=== PATIENT | male | born 1935 | race Caucasian/White ===

== ENCOUNTER 2017-03-09 08:42 | Emergency (ER) | payer MEDICARE ==
[~2017-03-09] VITALS: Ht 170.2 cm; Wt 85.0 kg
[~2017-03-09 08:42] MED LIST: LEVO50TA PO; METO-93 PO; SIMV5TAB5 PO
[2017-03-09 08:44] VITALS: BP 186/99
== END 2017-03-09 10:23 | disposition home or self-care (01) ==
LOC: ED 10:17
DX: S80.02XA Contusion of left knee, initial encounter (principal); M71.9 Bursopathy, unspecified; E11.9 Type 2 diabetes mellitus without complications; W18.00XA Striking against unspecified object with subsequent fall, initial encounter; Y93.89 Activity, other specified; Y99.8 Other external cause status; Y92.89 Other specified places as the place of occurrence of the external cause
CPT/HCPCS: 29505; 99284

== ENCOUNTER 2017-08-23 11:28 | Inpatient (IN) | payer MEDICARE ==
[~2017-08-23] VITALS: Ht 171.4 cm; Wt 81.6 kg
[2017-08-23] MEDS ORDERED: HYDR-3241 PO (11:42)
[2017-08-23] MEDS ORDERED: ASPI-650 PO (11:42)
[2017-08-23] MEDS ORDERED: LISI-170 PO (11:42)
[2017-08-23] MEDS ORDERED: INSU100C5 SQ-INSULIN (11:42)
[2017-08-23] MEDS ORDERED: TAMS-11 PO (11:42)
[2017-08-23] MEDS ORDERED: MECLIZINE CHEWABLE 25 MG TAB ONE (11:49)
[2017-08-23] MEDS ORDERED: SODIUM CHLORIDE FLUSH 10ML SYR IVF ONE (12:00)
[2017-08-23] MEDS ORDERED: MECLIZINE CHEWABLE 25 MG TAB PO ONE (12:00)
[2017-08-23 12:01] LABS: BASOPHILS # (AUTO) 0.02 x10^3/uL (0-0.1); BASOPHILS % (AUTO) 0 % (0-1); EOSINOPHILS # (AUTO) 0.04 x10^3/uL (0-0.4); EOSINOPHILS % (AUTO) 1 % (1-7); LYMPHOCYTES # (AUTO) 0.76 x10^3/uL (1-3.4); LYMPHOCYTES % (AUTO) 16 % (22-44); MD NO; MEAN CORPUSCULAR HEMOGLOBIN 30.6 pg (27.5-34.5); MEAN CORPUSCULAR HGB CONC 33.7 g/dL (33.2-36.2); MEAN CORPUSCULAR VOLUME 90.8 fL (81-97); MEAN PLATELET VOLUME 7.4 fL (7.4-10.4); MONOCYTES # (AUTO) 0.24 x10^3/uL (0.2-0.8); MONOCYTES % (AUTO) 5 % (2-9); NEUTROPHILS # (AUTO) 3.75 x10^3/uL (1.8-6.8); NEUTROPHILS % (AUTO) 78 % (42-75); PLATELET COUNT 239 x10^3/uL (130-400); RED CELL DISTRIBUTION WIDTH 13.7 % (9.4-14.8)
[2017-08-23 12:10] LABS: INTERNATIONAL NORMALIZED RATIO 1.08 (0.93-1.1); PROTHROMBIN TIME 11.1 Seconds (9.6-11.5)
[2017-08-23 12:12] LABS: ALANINE AMINOTRANSFERASE 56 U/L (12-78); ALBUMIN 3.8 g/dL (3.4-5.0); ANION GAP 7 mmol/L (5-15); CALCIUM 8.5 mg/dL (8.5-10.1); CHLORIDE 108 mmol/L (98-107)
[2017-08-23 12:17] LABS: ALKALINE PHOSPHATASE 65 U/L (45-117); BILIRUBIN,TOTAL 0.5 mg/dL (0.2-1.0); CREATININE 1.71 mg/dL (0.7-1.3); TOTAL PROTEIN 8.1 g/dL (6.4-8.2); TROPONIN I 0.041 ng/mL (0.000-0.045)
[2017-08-23] MEDS ORDERED: LABETALOL 5MG/ML, 20ML ONE (12:17)
[2017-08-23] MEDS ORDERED: LABETALOL 5MG/ML, 20ML IVPush ONE (12:30)
[2017-08-23 13:55] LABS: MICROSCOPIC AUTO
[2017-08-23 14:06] LABS: CULTURE INDICATED? NO
[2017-08-23] MEDS ORDERED: SODIUM CHLORIDE FLUSH 10ML SYR IVF PRN (16:00)
[2017-08-23] MEDS ORDERED: AMLODIPINE 5 MG TABLET PO ONE (16:30)
[2017-08-23] MEDS ORDERED: ONDANSETRON ODT 4 MG PO PRN (16:30)
[2017-08-23] MEDS ORDERED: METOCLOPRAMIDE 5 MG/ML, 2ML IVPush PRN (16:30)
[2017-08-23] MEDS ORDERED: hydrALAzine 20 MG/ML, 1ML IVPush PRN (16:30)
[2017-08-23] MEDS ORDERED: MECLIZINE CHEWABLE 25 MG TAB PO PRN (16:30)
[2017-08-23] MEDS ORDERED: ONDANSETRON 2MG/ML, 2ML IVPush PRN (16:30)
[2017-08-23] MEDS: INSULIN LISPRO 100 UNITS/ML, PEN SQ-INSULIN SCH ×2 (16:30→22:00)
[2017-08-23] MEDS ORDERED: PROMETHAZINE 25 MG/ML, 1ML IM PRN (16:30)
[2017-08-23 18:01] VITALS: BP 175/94
[2017-08-23 18:05] VITALS: BP 172/94
[2017-08-23 18:13] VITALS: BP 204/107
[2017-08-23] MEDS: ENOXAPARIN 40 MG/0.4 ML SQ SCH (18:46)
[2017-08-23] MEDS: SODIUM CHLORIDE 0.9% 1,000 ML IV SCH (18:54)
[2017-08-24 01:24] VITALS: BP 162/91
[2017-08-24] MEDS: SODIUM CHLORIDE 0.9% 1,000 ML IV SCH ×3 (01:58→20:09)
[2017-08-24 04:48] LABS: BASOPHILS # (AUTO) 0.02 x10^3/uL (0-0.1); BASOPHILS % (AUTO) 0 % (0-1); EOSINOPHILS # (AUTO) 0.27 x10^3/uL (0-0.4); EOSINOPHILS % (AUTO) 5 % (1-7); LYMPHOCYTES # (AUTO) 2.03 x10^3/uL (1-3.4); LYMPHOCYTES % (AUTO) 37 % (22-44); MD NO; MEAN CORPUSCULAR HEMOGLOBIN 31.2 pg (27.5-34.5); MEAN CORPUSCULAR HGB CONC 34.6 g/dL (33.2-36.2); MEAN CORPUSCULAR VOLUME 90.3 fL (81-97); MEAN PLATELET VOLUME 7.6 fL (7.4-10.4); MONOCYTES # (AUTO) 0.41 x10^3/uL (0.2-0.8); MONOCYTES % (AUTO) 7 % (2-9); NEUTROPHILS # (AUTO) 2.82 x10^3/uL (1.8-6.8); NEUTROPHILS % (AUTO) 51 % (42-75); PLATELET COUNT 239 x10^3/uL (130-400); RED BLOOD COUNT 4.46 x10^6/uL (4.38-5.82); RED CELL DISTRIBUTION WIDTH 13.6 % (9.4-14.8)
[2017-08-24 04:52] LABS: ANION GAP 9 mmol/L (5-15); CHLORIDE 107 mmol/L (98-107)
[2017-08-24 04:54] LABS: CREATININE 1.44 mg/dL (0.7-1.3)
[2017-08-24 06:25] VITALS: BP 176/91
[2017-08-24] MEDS ORDERED: hydrALAzine 20 MG/ML, 1ML IV PRN (07:30)
[2017-08-24] MEDS: INSULIN LISPRO 100 UNITS/ML, PEN SQ-INSULIN SCH ×4 (08:06→20:09)
[2017-08-24] MEDS: AMLODIPINE 5 MG TABLET PO SCH ×2 (09:00→09:33)
[2017-08-24] MEDS: MECLIZINE CHEWABLE 25 MG TAB PO SCH ×4 (09:32→20:19)
[2017-08-24] MEDS: TAMSULOSIN 0.4 MG CAP.ER.24H PO SCH (09:32)
[2017-08-24] MEDS: ASPIRIN 325 MG TABLET EC PO SCH (09:33)
[2017-08-24 12:24] VITALS: BP 137/74
[2017-08-24 14:15] VITALS: BP 135/76
[2017-08-24] MEDS: ENOXAPARIN 40 MG/0.4 ML SQ SCH (16:45)
[2017-08-24 19:29] VITALS: BP 130/71
[2017-08-25] MEDS: MECLIZINE CHEWABLE 25 MG TAB PO SCH ×6 (00:30→20:56)
[2017-08-25 01:16] VITALS: BP 129/70
[2017-08-25] MEDS: SODIUM CHLORIDE 0.9% 1,000 ML IV SCH (03:00)
[2017-08-25 05:17] LABS: BASOPHILS # (AUTO) 0.02 x10^3/uL (0-0.1); BASOPHILS % (AUTO) 0 % (0-1); EOSINOPHILS % (AUTO) 9 % (1-7); LYMPHOCYTES # (AUTO) 1.73 x10^3/uL (1-3.4); LYMPHOCYTES % (AUTO) 32 % (22-44); MD NO; MEAN PLATELET VOLUME 7.8 fL (7.4-10.4); MONOCYTES # (AUTO) 0.41 x10^3/uL (0.2-0.8); MONOCYTES % (AUTO) 8 % (2-9); NEUTROPHILS # (AUTO) 2.75 x10^3/uL (1.8-6.8); NEUTROPHILS % (AUTO) 51 % (42-75); PLATELET COUNT 218 x10^3/uL (130-400); RED BLOOD COUNT 4.38 x10^6/uL (4.38-5.82); RED CELL DISTRIBUTION WIDTH 13.7 % (9.4-14.8)
[2017-08-25 05:18] LABS: CHLORIDE 111 mmol/L (98-107)
[2017-08-25 05:25] LABS: ANION GAP 7 mmol/L (5-15); CALCIUM 7.9 mg/dL (8.5-10.1); CREATININE 1.43 mg/dL (0.7-1.3)
[2017-08-25 06:12] VITALS: BP 170/96
[2017-08-25] MEDS: INSULIN LISPRO 100 UNITS/ML, PEN SQ-INSULIN SCH ×4 (07:00→20:44)
[2017-08-25] MEDS: TAMSULOSIN 0.4 MG CAP.ER.24H PO SCH (08:37)
[2017-08-25] MEDS: AMLODIPINE 5 MG TABLET PO SCH (08:37)
[2017-08-25] MEDS: ASPIRIN 325 MG TABLET EC PO SCH (08:37)
[2017-08-25] MEDS: ACETAMINOPHEN 325 MG TABLET PO PRN ×2 (12:29→16:34)
[2017-08-25] MEDS: LISINOPRIL 20 MG TABLET PO SCH (12:29)
[2017-08-25 13:00] VITALS: BP 137/79
[2017-08-25] MEDS: ENOXAPARIN 40 MG/0.4 ML SQ SCH (16:34)
[2017-08-25 18:40] VITALS: BP 102/60
[2017-08-26] MEDS: ACETAMINOPHEN 325 MG TABLET PO PRN ×3 (00:40→20:17)
[2017-08-26] MEDS: MECLIZINE CHEWABLE 25 MG TAB PO SCH ×2 (00:41→05:02)
[2017-08-26 01:26] VITALS: BP 132/92
[2017-08-26] MEDS: INSULIN LISPRO 100 UNITS/ML, PEN SQ-INSULIN SCH ×4 (07:27→20:15)
[2017-08-26 08:00] VITALS: BP 138/79
[2017-08-26] MEDS ORDERED: MECLIZINE CHEWABLE 25 MG TAB PO PRN (08:30)
[2017-08-26] MEDS: ASPIRIN 325 MG TABLET EC PO SCH (11:20)
[2017-08-26] MEDS: TAMSULOSIN 0.4 MG CAP.ER.24H PO SCH (11:21)
[2017-08-26] MEDS: LISINOPRIL 20 MG TABLET PO SCH (11:21)
[2017-08-26 12:52] VITALS: BP 134/80
[2017-08-26] MEDS: ENOXAPARIN 40 MG/0.4 ML SQ SCH (16:10)
[2017-08-26 19:02] VITALS: BP 166/82
[2017-08-27 01:37] VITALS: BP 127/77
[2017-08-27] MEDS: INSULIN LISPRO 100 UNITS/ML, PEN SQ-INSULIN SCH ×4 (07:00→21:00)
[2017-08-27 07:19] LABS: ALBUMIN 3.1 g/dL (3.4-5.0); ANION GAP 9 mmol/L (5-15); CALCIUM 8.7 mg/dL (8.5-10.1); CHLORIDE 110 mmol/L (98-107); CREATININE 1.49 mg/dL (0.7-1.3)
[2017-08-27 07:38] VITALS: BP 145/82
[2017-08-27] MEDS: TAMSULOSIN 0.4 MG CAP.ER.24H PO SCH (08:24)
[2017-08-27] MEDS: ACETAMINOPHEN 325 MG TABLET PO PRN ×2 (08:25→19:20)
[2017-08-27] MEDS: LISINOPRIL 20 MG TABLET PO SCH (08:25)
[2017-08-27] MEDS: ASPIRIN 325 MG TABLET EC PO SCH (08:27)
[2017-08-27 11:15] VITALS: BP_SYST 154; BP_SYST 160; BP_SYST 162; BP_DIAS 80; BP_DIAS 82; BP_DIAS 92
[2017-08-27 12:26] VITALS: BP 134/65
[2017-08-27] MEDS: ENOXAPARIN 40 MG/0.4 ML SQ SCH (16:30)
[2017-08-27 18:46] VITALS: BP 163/79
[2017-08-28 01:56] VITALS: BP 130/76
[2017-08-28] MEDS ORDERED: DEXTROSE 50%, 50ML SYRINGE IVPush PRN (05:30)
[2017-08-28] MEDS ORDERED: GLUCAGON 1 MG IM PRN (05:30)
[2017-08-28] MEDS ORDERED: DEXTROSE 4 GM TAB.CHEW PO PRN (05:30)
[2017-08-28 05:55] LABS: ALBUMIN 3.2 g/dL (3.4-5.0); ANION GAP 6 mmol/L (5-15); CALCIUM 8.5 mg/dL (8.5-10.1); CHLORIDE 110 mmol/L (98-107)
[2017-08-28 05:57] LABS: CREATININE 1.33 mg/dL (0.7-1.3)
[2017-08-28] MEDS: INSULIN LISPRO 100 UNITS/ML, PEN SQ-INSULIN SCH ×4 (07:00→20:19)
[2017-08-28 07:13] VITALS: BP 162/98
[2017-08-28] MEDS: TAMSULOSIN 0.4 MG CAP.ER.24H PO SCH (08:25)
[2017-08-28] MEDS: ASPIRIN 325 MG TABLET EC PO SCH (08:25)
[2017-08-28] MEDS: SODIUM CHLORIDE FLUSH 10ML SYR IVF SCH ×2 (08:25→20:14)
[2017-08-28] MEDS: AMLODIPINE 5 MG TABLET PO SCH (08:25)
[2017-08-28] MEDS: ACETAMINOPHEN 325 MG TABLET PO PRN ×2 (08:25→20:14)
[2017-08-28 13:57] VITALS: BP 142/74
[2017-08-28] MEDS ORDERED: ENOXAPARIN 40 MG/0.4 ML SQ SCH ×2 (16:30)
[2017-08-28 19:24] VITALS: BP 142/81
[2017-08-29 01:39] VITALS: BP 141/71
[2017-08-29 05:18] LABS: ALBUMIN 3.3 g/dL (3.4-5.0); ANION GAP 10 mmol/L (5-15); CALCIUM 8.5 mg/dL (8.5-10.1); CHLORIDE 111 mmol/L (98-107); CREATININE 1.54 mg/dL (0.7-1.3)
[2017-08-29] MEDS: SODIUM CHLORIDE 0.9% 500 ML IV SCH ×3 (06:30→12:38)
[2017-08-29] MEDS: INSULIN LISPRO 100 UNITS/ML, PEN SQ-INSULIN SCH ×2 (07:00→11:00)
[2017-08-29 07:22] VITALS: BP 181/99
[2017-08-29 07:39] LABS: CHOL/HDL RATIO 5.1; LDL/HDL RATIO 3.6 (0.5-3.0)
[2017-08-29] MEDS: ASPIRIN 325 MG TABLET EC PO SCH (09:00)
[2017-08-29] MEDS: SODIUM CHLORIDE FLUSH 10ML SYR IVF SCH (09:00)
[2017-08-29] MEDS: TAMSULOSIN 0.4 MG CAP.ER.24H PO SCH (09:31)
[2017-08-29] MEDS: AMLODIPINE 5 MG TABLET PO SCH (09:31)
[2017-08-29 11:29] LABS: ALBUMIN 3.5 g/dL (3.4-5.0); ANION GAP 6 mmol/L (5-15); CALCIUM 8.6 mg/dL (8.5-10.1); CHLORIDE 111 mmol/L (98-107); CREATININE 1.57 mg/dL (0.7-1.3)
[2017-08-29 12:34] VITALS: BP 156/84
[2017-08-29] MEDS ORDERED: AMLO5TAB2 PO (12:35)
[2017-08-29] MEDS ORDERED: ASPI-621 PO (12:35)
[2017-08-29] MEDS ORDERED: ATOR40TA78 PO (12:35)
[2017-08-29] MEDS ORDERED: MECL-85 PO (12:35)
[2017-08-29] MEDS ORDERED: ATORVASTATIN 40 MG TABLET PO SCH (21:00)
[2017-08-30] MEDS ORDERED: ASPIRIN 81 MG TABLET EC PO SCH (09:00)
== END 2017-08-29 13:20 | disposition home or self-care (01) | DRG 149 ==
LOC: ED 12:41 → OBSVTOIN 15:49 → EDIP 15:49 → INTOOBSV 15:49 → 4EST 17:47 → 3NE 08-24 06:10
PROVIDERS: ADMIT Internal Medicine; ATTEND Internal Medicine
DX: H81.10 Benign paroxysmal vertigo, unspecified ear (principal); N17.9 Acute kidney failure, unspecified; I10 Essential (primary) hypertension; E11.9 Type 2 diabetes mellitus without complications; N40.0 Benign prostatic hyperplasia without lower urinary tract symptoms; I25.10 Atherosclerotic heart disease of native coronary artery without angina pectoris; N28.1 Cyst of kidney, acquired; G89.29 Other chronic pain; M54.9 Dorsalgia, unspecified; Z79.4 Long term (current) use of insulin; Z95.5 Presence of coronary angioplasty implant and graft; Z79.899 Other long term (current) drug therapy; Z79.1 Long term (current) use of non-steroidal anti-inflammatories (NSAID)
CPT/HCPCS: 36415; 70450; 70551; 71045; 76770; 80048; 80053; 80061; 81001; 82040; 82962; 83036; 83735; 84100; 84484; 85025; 85610; 85730; 93005; 93306; 93880; 97162; J1650; J1815; J7030

== ENCOUNTER 2018-02-10 10:51 | Emergency (ER) | payer MEDICARE ==
[~2018-02-10] VITALS: Ht 175.3 cm; Wt 84.7 kg
[~2018-02-10 10:51] MED LIST changes: +AMLO-150 PO; +ASPI-650 PO; +ASPI81TA45 PO; +ATOR40TA78 PO; +HYDR-3241 PO; +INSU100C5 SQ-INSULIN; +LISI-170 PO; +MECL-85 PO; +TAMS-11 PO
[2018-02-10 11:20] VITALS: BP 165/87
[2018-02-10] MEDS ORDERED: KETOROLAC 30 MG/1 ML ONE (12:37)
[2018-02-10] MEDS ORDERED: KETOROLAC 30 MG/1 ML IM ONE (13:00)
== END 2018-02-10 12:49 | disposition home or self-care (01) ==
LOC: ED 12:43
DX: M25.572 Pain in left ankle and joints of left foot (principal); I10 Essential (primary) hypertension; E11.9 Type 2 diabetes mellitus without complications
CPT/HCPCS: 36415; 73610; 84550; 96372; 99284; J1885; 82962

== ENCOUNTER 2018-04-14 15:06 | Inpatient (IN) | payer MEDICARE ==
[~2018-04-14] VITALS: Ht 172.7 cm; Wt 83.2 kg
[~2018-04-14 15:06] MED LIST changes: +SIMV5TAB14 PO; -SIMV5TAB5 PO
[2018-04-14 15:43] LABS: BASOPHILS # (AUTO) 0.02 x10^3/uL (0-0.1); BASOPHILS % (AUTO) 0 % (0-1); EOSINOPHILS % (AUTO) 7 % (1-7); LYMPHOCYTES # (AUTO) 2.13 x10^3/uL (1-3.4); LYMPHOCYTES % (AUTO) 35 % (22-44); MD NO; MEAN CORPUSCULAR HEMOGLOBIN 30.7 pg (27.5-34.5); MEAN CORPUSCULAR HGB CONC 33.6 g/dL (33.2-36.2); MEAN CORPUSCULAR VOLUME 91.3 fL (81-97); MONOCYTES # (AUTO) 0.48 x10^3/uL (0.2-0.8); MONOCYTES % (AUTO) 8 % (2-9); NEUTROPHILS % (AUTO) 51 % (42-75); PLATELET COUNT 198 x10^3/uL (130-400); RED BLOOD COUNT 4.87 x10^6/uL (4.38-5.82); RED CELL DISTRIBUTION WIDTH 13.6 % (9.4-14.8)
[2018-04-14 15:51] LABS: ALBUMIN 3.8 g/dL (3.4-5.0); ANION GAP 7 mmol/L (5-15); CALCIUM 9.2 mg/dL (8.5-10.1); CHLORIDE 107 mmol/L (98-107)
[2018-04-14 15:57] LABS: ALANINE AMINOTRANSFERASE 42 U/L (12-78); ALKALINE PHOSPHATASE 76 U/L (45-117); BILIRUBIN,TOTAL 0.4 mg/dL (0.2-1.0); CREATININE 1.69 mg/dL (0.7-1.3); TOTAL PROTEIN 8.6 g/dL (6.4-8.2)
[2018-04-14 16:04] LABS: TROPONIN I 0.634 ng/mL (0.000-0.045)
[2018-04-14] MEDS ORDERED: ASPIRIN 81 MG TABLET CHEW ONE (16:10)
--- NOTE | 2018-04-14 16:14 | NUR ---
FROM LOBBY TO ROOM
--- NOTE | 2018-04-14 16:16 | NUR ---
PT C/O CHEST PAIN SINCE THE FIRST OF THE YEAR "I HAVE HEARTBURN" PER TRIAGE NOTE
[2018-04-14] MEDS ORDERED: ASPIRIN 81 MG TABLET CHEW PO ONE (16:30)
--- NOTE | 2018-04-14 17:26 | NUR ---
PT WILL BE ADMITTED
[2018-04-14] MEDS ORDERED: ONDANSETRON 2MG/ML, 2ML IVPush PRN (17:30)
[2018-04-14] MEDS ORDERED: hydrALAzine 20 MG/ML, 1ML IV PRN (17:30)
[2018-04-14] MEDS ORDERED: ONDANSETRON ODT 4 MG PO PRN (17:30)
--- NOTE | 2018-04-14 17:52 | NUR ---
aashish report to jonas ferguson tele vss updated pt is ready to be transferred now
[2018-04-14] MEDS ORDERED: NITROGLYCERIN 0.4 MG BOTTLE (25 TABS) SL PRN (18:00)
[2018-04-14] MEDS ORDERED: NITROGLYCERIN 0.4 MG/SPRAY SL PRN (18:00)
[2018-04-14] MEDS: SODIUM CHLORIDE 0.9% 1,000 ML IV SCH (18:12)
[2018-04-14 18:21] VITALS: BP 176/88
[2018-04-14] MEDS: HEPARIN 5,000 UNITS/ML, 1ML SQ SCH (18:35)
[2018-04-14] MEDS: INSULIN LISPRO 100 UNITS/ML, PEN SQ-INSULIN SCH ×2 (18:35→21:00)
[2018-04-14] MEDS: LABETALOL 20 MG/4 ML IVPush PRN ×2 (18:41→22:30)
[2018-04-14] MEDS: ATORVASTATIN 40 MG TABLET PO SCH (21:26)
[2018-04-14] MEDS: PANTOPROZOLE 40MG TABLET PO SCH (21:26)
[2018-04-14 21:57] VITALS: BP 173/97
[2018-04-14 21:58] VITALS: BP_SYST 173; BP_SYST 178; BP_DIAS 105; BP_DIAS 97
[2018-04-14] MEDS ORDERED: ASPIRIN 325 MG TABLET EC PO ONE (22:00)
[2018-04-14 22:37] VITALS: BP_SYST 173; BP_SYST 178; BP_DIAS 105; BP_DIAS 97
[2018-04-15 02:14] VITALS: BP 149/85
[2018-04-15] MEDS: HEPARIN 5,000 UNITS/ML, 1ML SQ SCH ×2 (02:17→11:09)
[2018-04-15 05:06] LABS: BASOPHILS # (AUTO) 0.03 x10^3/uL (0-0.1); BASOPHILS % (AUTO) 1 % (0-1); EOSINOPHILS # (AUTO) 0.39 x10^3/uL (0-0.4); EOSINOPHILS % (AUTO) 7 % (1-7); LYMPHOCYTES # (AUTO) 1.99 x10^3/uL (1-3.4); LYMPHOCYTES % (AUTO) 35 % (22-44); MD NO; MEAN CORPUSCULAR HEMOGLOBIN 31.4 pg (27.5-34.5); MEAN CORPUSCULAR HGB CONC 34.4 g/dL (33.2-36.2); MEAN CORPUSCULAR VOLUME 91.4 fL (81-97); MEAN PLATELET VOLUME 8.3 fL (7.4-10.4); MONOCYTES # (AUTO) 0.36 x10^3/uL (0.2-0.8); MONOCYTES % (AUTO) 6 % (2-9); NEUTROPHILS # (AUTO) 2.85 x10^3/uL (1.8-6.8); NEUTROPHILS % (AUTO) 51 % (42-75); PLATELET COUNT 179 x10^3/uL (130-400); RED BLOOD COUNT 4.55 x10^6/uL (4.38-5.82); RED CELL DISTRIBUTION WIDTH 13.7 % (9.4-14.8)
[2018-04-15 05:19] LABS: ALANINE AMINOTRANSFERASE 37 U/L (12-78); ALBUMIN 3.2 g/dL (3.4-5.0); ANION GAP 7 mmol/L (5-15); CALCIUM 8.1 mg/dL (8.5-10.1); CHLORIDE 108 mmol/L (98-107); CHOLESTEROL, TOTAL 243 mg/dL (140-239); CREATININE 1.55 mg/dL (0.7-1.3)
[2018-04-15 05:21] LABS: ALKALINE PHOSPHATASE 62 U/L (45-117); BILIRUBIN,TOTAL 0.6 mg/dL (0.2-1.0); CHOL/HDL RATIO 6.6; HDL CHOL % 15 % (26-37); HDL CHOLESTEROL (DIRECT) 37 mg/dL (40-60); LDL CHOLESTEROL,CALCULATED 189 mg/dL (54-169); LDL/HDL RATIO 5.1 (0.5-3.0); TOTAL PROTEIN 7.5 g/dL (6.4-8.2); TRIGLYCERIDES 84 mg/dL (50-200); VLDL CHOLESTEROL 17 mg/dL (0-25)
[2018-04-15] MEDS: SODIUM CHLORIDE 0.9% 1,000 ML IV SCH ×2 (05:54→22:48)
[2018-04-15] MEDS: INSULIN LISPRO 100 UNITS/ML, PEN SQ-INSULIN SCH ×4 (07:04→20:52)
[2018-04-15 09:01] VITALS: BP 157/82
[2018-04-15] MEDS: AMLODIPINE 5 MG TABLET PO SCH (09:04)
[2018-04-15] MEDS: ASPIRIN 81 MG TABLET EC PO SCH (09:04)
[2018-04-15] MEDS: TAMSULOSIN 0.4 MG CAP.ER.24H PO SCH (09:04)
[2018-04-15] MEDS: PANTOPROZOLE 40MG TABLET PO SCH ×2 (09:04→17:29)
[2018-04-15] MEDS ORDERED: SODIUM CHLORIDE 0.9% 1,000 ML IV SCH ×2 (10:00→16:06)
[2018-04-15] MEDS ORDERED: HEPARIN 25,000 UNITS/500ML PMX 500 ML IV PRN ×2 (10:30→12:00)
[2018-04-15] MEDS ORDERED: HEPARIN 5,000 UNITS/ML, 1ML IV PRN ×2 (10:30→12:00)
[2018-04-15] MEDS ORDERED: HEPARIN 5,000 UNITS/ML, 1ML IV ONE ×2 (10:30→12:00)
[2018-04-15] MEDS ORDERED: VERAPAMIL 2.5 MG/ML, 2ML ONE (13:45)
[2018-04-15] MEDS ORDERED: FENTANYL PF 100 MCG/2ML ONE ×2 (13:45→15:39)
[2018-04-15] MEDS ORDERED: MIDAZOLAM 1 MG/ML, 5ML ONE ×2 (13:45→15:38)
[2018-04-15] MEDS ORDERED: HEPARIN 1,000 UNITS/ML, 10ML ONE (13:45)
[2018-04-15] MEDS ORDERED: NITROGLYCERIN 5 MG/ML, 10ML ONE (13:45)
[2018-04-15] MEDS ORDERED: BIVALIRUDIN 250 MG ONE ×2 (13:45→15:39)
[2018-04-15] MEDS ORDERED: LIDOCAINE-MPF 1%, 5ML ONE (13:46)
[2018-04-15] MEDS ORDERED: TICAGRELOR 90 MG TABLET ONE (15:39)
[2018-04-15] MEDS ORDERED: hydrALAzine 20 MG/ML, 1ML ONE (15:56)
[2018-04-15] MEDS ORDERED: BIVALIRUDIN 250 MG in SODIUM CHLORIDE 0.9% 50 ML IV SCH (16:06)
[2018-04-15 16:25] VITALS: BP 164/86
[2018-04-15] MEDS: ACETAMINOPHEN 325 MG TABLET PO PRN (17:10)
[2018-04-15 19:50] VITALS: BP 172/101
[2018-04-15 20:23] VITALS: BP 163/87
[2018-04-15] MEDS: ATORVASTATIN 40 MG TABLET PO SCH (20:51)
[2018-04-15] MEDS ORDERED: TICAGRELOR 90 MG TABLET PO SCH (21:00)
[2018-04-15] MEDS ORDERED: DIPHENHYDRAMINE 25 MG CAPSULE PO PRN (23:00)
[2018-04-16] VITALS (7 sets, daily range): BP systolic 119–176; BP diastolic 72–91
[2018-04-16] MEDS: LABETALOL 20 MG/4 ML IVPush PRN (01:16)
[2018-04-16 04:57] LABS: ANION GAP 8 mmol/L (5-15); CALCIUM 8.5 mg/dL (8.5-10.1); CHLORIDE 109 mmol/L (98-107); CREATININE 1.54 mg/dL (0.7-1.3)
[2018-04-16] MEDS: PANTOPROZOLE 40MG TABLET PO SCH ×2 (07:30→17:00)
[2018-04-16] MEDS: INSULIN LISPRO 100 UNITS/ML, PEN SQ-INSULIN SCH ×4 (08:15→22:06)
[2018-04-16] MEDS ORDERED: LISINOPRIL 5 MG TABLET PO SCH (09:00)
[2018-04-16] MEDS ORDERED: CLOPIDOGREL 300 MG TABLET PO ONE (09:00)
[2018-04-16] MEDS: TAMSULOSIN 0.4 MG CAP.ER.24H PO SCH (09:45)
[2018-04-16] MEDS: AMLODIPINE 5 MG TABLET PO SCH (09:45)
[2018-04-16] MEDS: LISINOPRIL 20 MG TABLET PO SCH (09:46)
[2018-04-16] MEDS: ASPIRIN 81 MG TABLET EC PO SCH (09:46)
[2018-04-16] MEDS: METOPROLOL TARTRATE 25 MG TABLET PO SCH ×2 (11:07→17:22)
[2018-04-16] MEDS ORDERED: AMLODIPINE 5 MG TABLET PO ONE (13:30)
[2018-04-16] MEDS: HEPARIN 5,000 UNITS/ML, 1ML SQ SCH ×2 (13:38→22:02)
[2018-04-16] MEDS: SODIUM CHLORIDE 0.9% 1,000 ML IV SCH (13:39)
[2018-04-16] MEDS: ATORVASTATIN 40 MG TABLET PO SCH (22:01)
[2018-04-17 01:19] VITALS: BP 129/68
[2018-04-17] MEDS: SODIUM CHLORIDE 0.9% 1,000 ML IV SCH (05:17)
[2018-04-17] MEDS: HEPARIN 5,000 UNITS/ML, 1ML SQ SCH ×2 (05:20→13:53)
[2018-04-17 05:21] VITALS: BP 159/92
[2018-04-17] MEDS: METOPROLOL TARTRATE 25 MG TABLET PO SCH (05:21)
[2018-04-17] MEDS: INSULIN LISPRO 100 UNITS/ML, PEN SQ-INSULIN SCH ×2 (07:00→11:00)
[2018-04-17 07:59] VITALS: BP 122/64
[2018-04-17] MEDS: PANTOPROZOLE 40MG TABLET PO SCH (08:30)
[2018-04-17] MEDS ORDERED: CLOPIDOGREL 75 MG TABLET PO SCH (09:00)
[2018-04-17] MEDS: AMLODIPINE 5 MG TABLET PO SCH (09:18)
[2018-04-17] MEDS: ASPIRIN 81 MG TABLET EC PO SCH (09:19)
[2018-04-17] MEDS: TAMSULOSIN 0.4 MG CAP.ER.24H PO SCH (09:19)
[2018-04-17] MEDS: LISINOPRIL 20 MG TABLET PO SCH (09:19)
[2018-04-17] MEDS: ACETAMINOPHEN 325 MG TABLET PO PRN (09:42)
[2018-04-17] MEDS ORDERED: LISI-170 PO (13:31)
[2018-04-17] MEDS ORDERED: CLOP75TA PO (13:31)
[2018-04-17] MEDS ORDERED: NITR0.4T SL (13:31)
[2018-04-17] MEDS ORDERED: METO25TA35 PO (13:31)
== END 2018-04-17 15:30 | disposition home or self-care (01) | DRG 246 ==
LOC: ED 17:15 → EDIP 17:16 → 5SO 18:07 → DCLOUNGE 04-17 15:09
PROVIDERS: ADMIT Hospitalist; ATTEND Hospitalist
PROC: 027137Z Dilation of Coronary Artery, Two Arteries with Four or More Drug-eluting Intraluminal Devices, Percutaneous Approach (ICD-10-PCS; principal; 2018-04-15)
PROC: 4A023N7 Measurement of Cardiac Sampling and Pressure, Left Heart, Percutaneous Approach (ICD-10-PCS; 2018-04-15)
PROC: B2111ZZ Fluoroscopy of Multiple Coronary Arteries using Low Osmolar Contrast (ICD-10-PCS; 2018-04-15)
PROC: B2151ZZ Fluoroscopy of Left Heart using Low Osmolar Contrast (ICD-10-PCS; 2018-04-15)
PROC: B240ZZ3 Ultrasonography of Single Coronary Artery, Intravascular (ICD-10-PCS; 2018-04-15)
DX: I21.4 Non-ST elevation (NSTEMI) myocardial infarction (principal); I50.32 Chronic diastolic (congestive) heart failure; I13.10 Hypertensive heart and chronic kidney disease without heart failure, with stage 1 through stage 4 chronic kidney disease, or unspecified chronic kidney disease; Z79.4 Long term (current) use of insulin; E11.22 Type 2 diabetes mellitus with diabetic chronic kidney disease; I25.110 Atherosclerotic heart disease of native coronary artery with unstable angina pectoris; E78.5 Hyperlipidemia, unspecified; G89.29 Other chronic pain; N18.9 Chronic kidney disease, unspecified; N40.0 Benign prostatic hyperplasia without lower urinary tract symptoms; Z87.891 Personal history of nicotine dependence; Z79.82 Long term (current) use of aspirin; Z79.899 Other long term (current) drug therapy
CPT/HCPCS: 36415; 71046; 80048; 80053; 80061; 82962; 83036; 84443; 84484; 85014; 85018; 85025; 85520; 92978; 93005; 93306; 93458; 99156; 99157; 99285; C1753; C1769; C1894; C9600; G0378; J0583; J1644; J2250; J3010; C1725; C1874; C1887; J0360; J1815; J3490; J7030; Q0163; Q9967

== ENCOUNTER 2018-05-08 08:47 | Emergency (ER) | payer MEDICARE ==
[~2018-05-08] VITALS: Ht 172.7 cm; Wt 83.5 kg
[~2018-05-08 08:47] MED LIST changes: +CLOP75TA PO; +METO25TA35 PO; +NITR0.4T SL
[2018-05-08 08:49] VITALS: BP 143/75
--- NOTE | 2018-05-08 09:30 | NUR ---
PT TO ROOM, PRESENTS TO ED FOR R ARM PAINX 1 YEAR, HX OF SD 2WEEKS AGO, EKG DONE. AT BEDSIDE. KENTON RUSSELL. WCTM
== END 2018-05-08 10:24 | disposition home or self-care (01) ==
LOC: ED 10:10
DX: R20.2 Paresthesia of skin (principal); I10 Essential (primary) hypertension; E11.9 Type 2 diabetes mellitus without complications
CPT/HCPCS: 93005; 99283

== ENCOUNTER 2018-06-09 07:02 | Inpatient (IN) | payer MEDICARE ==
[~2018-06-09] VITALS: Ht 172.7 cm; Wt 85.0 kg
--- NOTE | 2018-06-09 07:19 | NUR ---
PT WALKED INTO ROOM. PT ASKED TO CHANGE INTO GOWN. PT STATES "I DON'T WANT TO CHANGE." PT EDUCATED REGARDING ASSESSMENTS NEEDED BY EDMD. PT STATES "JUST GIVE ME A PRESCRIPTION. I DON'T WANT GET INTO A GOWN." PRIMARY RN AWARE
--- NOTE | 2018-06-09 07:26 | NUR ---
FIRST CONTACT WITH PT. Pt agreed to change in to a gown and rest on gurney. Pt connected to environmental monitoring technician, NIBP, and continous pulse ox. All safety measures in place. Call light within reach. Pt states, "I have a bad burning and gas right now. I think it is just heart burn. I had 2 stents placed here in my heart from a heart attack in April, I had the burning then. I don't think it is my heart this time. I had a third stent placed in my heart, it was the first one, in 1997 from a heart attack. I have diabetes. I take high blood pressure meds, I take norco's for my back, they are really addicting and I can't sleep at night so I stopped taking them five days ago, I have been taking Aleve, it has a sleep medicine in it. I took the Aleve this morning. I also take meds for my prostate." NADN. Pt denies sob, n/v/d, trauma, diaphoresis, lightheadedness, numbness, tingling, radiation of pain. Pt states, "when I start walking the burning gets worse again."
[2018-06-09] MEDS ORDERED: MAALOX/HYOSCYAMINE/LIDOCAINE 45 ML BTL ONE (07:47)
[2018-06-09] MEDS ORDERED: FAMOTIDINE 20 MG TABLET ONE (07:47)
[2018-06-09] MEDS ORDERED: FAMOTIDINE 20 MG TABLET PO ONE (08:00)
[2018-06-09] MEDS ORDERED: MAALOX/HYOSCYAMINE/LIDOCAINE 45 ML BTL PO ONE (08:00)
--- NOTE | 2018-06-09 08:07 | NUR ---
Went to provide pt medicaiton, pt not in room. Pt transported on gurney to imaging.
[2018-06-09 08:20] LABS: BASOPHILS % (AUTO) 0 % (0-1); EOSINOPHILS % (AUTO) 9 % (1-7); LYMPHOCYTES # (AUTO) 1.38 x10^3/uL (1-3.4); LYMPHOCYTES % (AUTO) 24 % (22-44); MD NO; MEAN CORPUSCULAR HGB CONC 33.9 g/dL (33.2-36.2); MEAN CORPUSCULAR VOLUME 91.3 fL (81-97); MEAN PLATELET VOLUME 7.8 fL (7.4-10.4); MONOCYTES # (AUTO) 0.44 x10^3/uL (0.2-0.8); MONOCYTES % (AUTO) 8 % (2-9); NEUTROPHILS # (AUTO) 3.39 x10^3/uL (1.8-6.8); NEUTROPHILS % (AUTO) 59 % (42-75); PLATELET COUNT 218 x10^3/uL (130-400); RED BLOOD COUNT 4.24 x10^6/uL (4.38-5.82); RED CELL DISTRIBUTION WIDTH 13.9 % (9.4-14.8)
[2018-06-09 08:29] LABS: ALANINE AMINOTRANSFERASE 21 U/L (12-78); ALBUMIN 3.8 g/dL (3.4-5.0); ANION GAP 6 mmol/L (5-15); CALCIUM 8.9 mg/dL (8.5-10.1); CHLORIDE 111 mmol/L (98-107); CREATININE 1.59 mg/dL (0.7-1.3)
[2018-06-09 08:33] LABS: ALKALINE PHOSPHATASE 64 U/L (45-117); BILIRUBIN,TOTAL 0.4 mg/dL (0.2-1.0); TOTAL PROTEIN 7.7 g/dL (6.4-8.2)
--- NOTE | 2018-06-09 09:51 | NUR ---
Provided report to AUSTEN Wood. All questions answered.
[2018-06-09] MEDS ORDERED: NITROGLYCERIN 0.4 MG BOTTLE (25 TABS) SL PRN ×2 (10:00→11:00)
[2018-06-09] MEDS ORDERED: NITROGLYCERIN 0.4 MG/SPRAY SL PRN (10:00)
--- NOTE | 2018-06-09 10:04 | NUR ---
Pt transfered to floor from ED. AUSTEN Wood aware home medicaiton list was not verified in ED. Pt left [facility] personal belongings.
[2018-06-09 10:08] VITALS: BP 167/87
[2018-06-09] MEDS ORDERED: CLOP75TA52 PO (10:48)
[2018-06-09] MEDS ORDERED: ONDANSETRON ODT 4 MG PO PRN (11:00)
[2018-06-09] MEDS ORDERED: ONDANSETRON 2MG/ML, 2ML IVPush PRN (11:00)
[2018-06-09] MEDS: INSULIN LISPRO 100 UNITS/ML, PEN SQ-INSULIN SCH ×3 (11:05→21:00)
[2018-06-09] MEDS: PANTOPRAZOLE 40 MG IV IVPush SCH ×2 (11:43→21:20)
[2018-06-09 13:25] VITALS: BP 149/89
[2018-06-09] MEDS ORDERED: HEPARIN 1,000 UNITS/ML, 10ML ONE ×2 (14:27→14:29)
[2018-06-09] MEDS ORDERED: VERAPAMIL 2.5 MG/ML, 2ML ONE ×2 (14:27→14:29)
[2018-06-09] MEDS ORDERED: LIDOCAINE-MPF 1%, 5ML ONE (14:28)
[2018-06-09] MEDS ORDERED: BIVALIRUDIN 250 MG ONE (14:29)
[2018-06-09] MEDS ORDERED: LIDOCAINE 2%, 20ML ONE (14:29)
[2018-06-09] MEDS ORDERED: FENTANYL PF 100 MCG/2ML ONE (14:29)
[2018-06-09] MEDS ORDERED: MIDAZOLAM 1 MG/ML, 2ML ONE ×2 (14:30→15:06)
[2018-06-09] MEDS ORDERED: TICAGRELOR 90 MG TABLET ONE (14:30)
[2018-06-09] MEDS ORDERED: CLOPIDOGREL 300 MG TABLET ONE (14:35)
[2018-06-09] MEDS ORDERED: METOPROLOL 1 MG/ML, 5ML ONE (15:22)
[2018-06-09] MEDS: METOPROLOL TARTRATE 25 MG TABLET PO SCH (17:19)
[2018-06-09 19:11] VITALS: BP 148/83
[2018-06-09] MEDS ORDERED: ATORVASTATIN 40 MG TABLET PO SCH (21:00)
[2018-06-10 01:10] VITALS: BP 150/86
[2018-06-10 06:07] VITALS: BP 158/87
[2018-06-10] MEDS: METOPROLOL TARTRATE 25 MG TABLET PO SCH (06:07)
[2018-06-10] MEDS: INSULIN LISPRO 100 UNITS/ML, PEN SQ-INSULIN SCH ×3 (07:00→11:22)
[2018-06-10] MEDS ORDERED: SUCRALFATE 1 GM/10 ML UDC ONE (08:26)
[2018-06-10] MEDS ORDERED: PANTOPROZOLE 40MG TABLET ONE (08:26)
[2018-06-10] MEDS: SUCRALFATE 1 GM/10 ML UDC PO SCH ×2 (08:50→11:50)
[2018-06-10] MEDS ORDERED: LISINOPRIL 20 MG TABLET PO SCH (09:00)
[2018-06-10] MEDS ORDERED: CLOPIDOGREL 75 MG TABLET PO SCH (09:00)
[2018-06-10] MEDS ORDERED: ASPIRIN 81 MG TABLET EC PO SCH (09:00)
[2018-06-10] MEDS ORDERED: AMLODIPINE 5 MG TABLET PO SCH (09:00)
[2018-06-10] MEDS ORDERED: PANTOPROZOLE 40MG TABLET PO SCH (09:00)
[2018-06-10] MEDS ORDERED: TAMSULOSIN 0.4 MG CAP.ER.24H PO SCH (09:00)
[2018-06-10 09:08] VITALS: BP 151/81
[2018-06-10] MEDS ORDERED: SUCRALFATE 1 GM/10 ML UDC PO SCH (11:00)
[2018-06-10] MEDS ORDERED: PANT40TA5 PO (12:02)
[2018-06-10] MEDS ORDERED: CLOP75TA52 PO (12:02)
[2018-06-10] MEDS ORDERED: METO25TA35 PO (12:02)
[2018-06-10] MEDS ORDERED: SUCR1ORA5 PO (12:02)
== END 2018-06-10 13:20 | disposition home or self-care (01) | DRG 281 ==
LOC: ED 08:01 → EDIP 08:51 → 5SO 10:02 → DCLOUNGE 06-10 13:05
PROVIDERS: ADMIT Hospitalist; ATTEND Hospitalist
PROC: 4A023N7 Measurement of Cardiac Sampling and Pressure, Left Heart, Percutaneous Approach (ICD-10-PCS; principal; 2018-06-09)
PROC: B2111ZZ Fluoroscopy of Multiple Coronary Arteries using Low Osmolar Contrast (ICD-10-PCS; 2018-06-09)
PROC: B2151ZZ Fluoroscopy of Left Heart using Low Osmolar Contrast (ICD-10-PCS; 2018-06-09)
DX: I21.4 Non-ST elevation (NSTEMI) myocardial infarction (principal); T82.855A Stenosis of coronary artery stent, initial encounter; I13.10 Hypertensive heart and chronic kidney disease without heart failure, with stage 1 through stage 4 chronic kidney disease, or unspecified chronic kidney disease; D64.9 Anemia, unspecified; E11.22 Type 2 diabetes mellitus with diabetic chronic kidney disease; E78.5 Hyperlipidemia, unspecified; G89.29 Other chronic pain; I25.10 Atherosclerotic heart disease of native coronary artery without angina pectoris; K21.9 Gastro-esophageal reflux disease without esophagitis; K76.0 Fatty (change of) liver, not elsewhere classified; N18.9 Chronic kidney disease, unspecified; N28.1 Cyst of kidney, acquired; N40.0 Benign prostatic hyperplasia without lower urinary tract symptoms; Z79.4 Long term (current) use of insulin; Z82.49 Family history of ischemic heart disease and other diseases of the circulatory system; Z87.891 Personal history of nicotine dependence; Z91.19 Patient's noncompliance with other medical treatment and regimen; Z95.5 Presence of coronary angioplasty implant and graft; Y71.8 Miscellaneous cardiovascular devices associated with adverse incidents, not elsewhere classified; Y92.89 Other specified places as the place of occurrence of the external cause
CPT/HCPCS: 36415; 71046; 76700; 80053; 82962; 83690; 84484; 85025; 86677; 93005; 93458; 99156; 99291; C1769; C1894; G0378; J0583; J1644; J2250; J3010; C9113; Q9967

== ENCOUNTER 2018-06-30 12:56 | Emergency (ER) | payer MEDICARE ==
[~2018-06-30] VITALS: Ht 172.7 cm; Wt 83.3 kg
[~2018-06-30 12:56] MED LIST changes: +CLOP75TA52 PO; +PANT40TA5 PO; +SUCR1ORA5 PO
--- NOTE | 2018-06-30 13:32 | NUR ---
PRESENTS WITH TONHUE PAIN/SWELLING WHICH PATIENT ATTRIBUTE TO AUGMENTIN. STRTED 06/21. TONGUE SWOLLEN/DRY. THROAT APPEARS SOFT. REPORTS TROUBLE EATING D/T PAIN. ABLE TO SWALLOW SALIVA W/OUT DIFFICULTY. VOICE SOUNDS NORMAL (PATENT AGREES). NO RASHES NOTED OR REPORTED
[2018-06-30] MEDS ORDERED: LIDOCAINE 2% VISCOUS 15 ML UDC MM ONE (14:00)
--- NOTE | 2018-06-30 14:33 | NUR ---
[place] RN: PATIENT MEDICATION ORDERED FROM PHARM
--- NOTE | 2018-06-30 14:46 | NUR ---
PHARMACY CALLED FOR UNDELIVERED LIDOCAINE PATIENT UPDATED ON POC
--- NOTE | 2018-06-30 15:14 | NUR ---
PATIENT REPORTS MOUTH/TONGUE PAIN IMPROVED TO 0/10. TAKING WATER W/OUT DIFFICULTY PUT UP FOR RE-CHECK
[2018-06-30 15:32] VITALS: BP 127/79
== END 2018-06-30 15:19 | disposition home or self-care (01) ==
LOC: ED 14:20
DX: K14.0 Glossitis (principal); E11.9 Type 2 diabetes mellitus without complications; I25.2 Old myocardial infarction; I25.10 Atherosclerotic heart disease of native coronary artery without angina pectoris; I10 Essential (primary) hypertension; Z87.891 Personal history of nicotine dependence; Z79.899 Other long term (current) drug therapy
CPT/HCPCS: 71046; 93005; 99283; J7512

== ENCOUNTER 2018-10-01 10:11 | Emergency (ER) | payer MEDICARE ==
[~2018-10-01] VITALS: Ht 172.7 cm; Wt 81.3 kg
[~2018-10-01 10:11] MED LIST changes: -NITR0.4T SL; +NITR0.4T41 SL
[2018-10-01] MEDS ORDERED: MAALOX/HYOSCYAMINE/LIDOCAINE 45 ML BTL ONE ×2 (10:36→14:27)
[2018-10-01] MEDS ORDERED: MAALOX/HYOSCYAMINE/LIDOCAINE 45 ML BTL PO ONE (11:00)
[2018-10-01 11:13] LABS: BASOPHILS # (AUTO) 0.01 x10^3/uL (0-0.1); BASOPHILS % (AUTO) 0 % (0-1); EOSINOPHILS # (AUTO) 0.59 x10^3/uL (0-0.4); EOSINOPHILS % (AUTO) 13 % (1-7); LYMPHOCYTES # (AUTO) 0.88 x10^3/uL (1-3.4); LYMPHOCYTES % (AUTO) 19 % (22-44); MD NO; MEAN CORPUSCULAR HEMOGLOBIN 31.2 pg (27.5-34.5); MEAN CORPUSCULAR HGB CONC 33.7 g/dL (33.2-36.2); MEAN CORPUSCULAR VOLUME 92.5 fL (81-97); MEAN PLATELET VOLUME 7.8 fL (7.4-10.4); MONOCYTES # (AUTO) 0.32 x10^3/uL (0.2-0.8); MONOCYTES % (AUTO) 7 % (2-9); NEUTROPHILS # (AUTO) 2.82 x10^3/uL (1.8-6.8); NEUTROPHILS % (AUTO) 61 % (42-75); PLATELET COUNT 195 x10^3/uL (130-400); RED BLOOD COUNT 4.63 x10^6/uL (4.38-5.82)
[2018-10-01 11:24] LABS: ALBUMIN 3.8 g/dL (3.4-5.0); ANION GAP 7 mmol/L (5-15); CALCIUM 8.9 mg/dL (8.5-10.1); CHLORIDE 112 mmol/L (98-107); CREATININE 2.06 mg/dL (0.7-1.3)
[2018-10-01] MEDS ORDERED: SODIUM CHLORIDE FLUSH 10ML SYR IVF ONE (12:00)
[2018-10-01] MEDS ORDERED: SODIUM CHLORIDE 0.9%, 500ML IVBOLUS ONE (12:00)
--- NOTE | 2018-10-01 12:15 | NUR ---
pt in [place]
[2018-10-01] MEDS ORDERED: OMNIPAQUE 350 MG/ML, 100ML BOTTLE ONE (12:16)
--- NOTE | 2018-10-01 12:35 | NUR ---
back from [place]
--- NOTE | 2018-10-01 12:54 | NUR ---
paged dr torres ent for dr ellsworth
[2018-10-01] MEDS ORDERED: DEXAMETHASONE 4 MG/ML, 5ML ONE (13:00)
[2018-10-01] MEDS ORDERED: DEXAMETHASONE 4 MG/ML, 1ML IVPush ONE (13:00)
--- NOTE | 2018-10-01 13:13 | NUR ---
2nd page to dr brian briones for dr ellsworth
[2018-10-01 13:33] VITALS: BP 167/92
--- NOTE | 2018-10-01 13:36 | NUR ---
dr torres returned call and spoke with dr lourdes barone.
--- NOTE | 2018-10-01 14:35 | NUR ---
Assumed care for discharge only Patient/Caregiver given discharge instructions and they have confirmed that they understand the instructions. Patient ambulatory with steady gait.
== END 2018-10-01 14:36 | disposition home or self-care (01) ==
LOC: ED 10:56
DX: R07.0 Pain in throat (principal); E86.0 Dehydration; I10 Essential (primary) hypertension; E11.9 Type 2 diabetes mellitus without complications; I25.2 Old myocardial infarction; Z87.891 Personal history of nicotine dependence; Z95.5 Presence of coronary angioplasty implant and graft
CPT/HCPCS: 36415; 70491; 80048; 82040; 85025; 96361; 96374; 99284; J1100; J7040; Q9967